=== PATIENT | female | born 1965 | race Caucasian/White ===

== ENCOUNTER → 2018-06-20 | Outpatient (CLI) | payer BC ==
--- NOTE | 2018-06-20 17:08 | Diagnostic Imaging Report ---
INDICATION: Cough with shortness of breath and fatigue. TIME OF EXAM: 1:40 PM No prior studies are available for comparison. The heart size is normal. The pulmonary vascularity is unremarkable. The lungs are clear. No infiltrate, effusion or pneumothorax is detected. Impression: No acute cardiopulmonary process is detected. Dictated by: Dictated on workstation # [id number]
== END ==
LOC: RAD 13:08
PROVIDERS: ATTEND Nurse Practitioner Primary Care
DX: J20.9 Acute bronchitis, unspecified (principal); R06.02 Shortness of breath
CPT/HCPCS: 71046

== ENCOUNTER 2021-02-21 11:26 | Outpatient (CLI) | payer BC ==
[~2021-02-21] VITALS: Ht 167.7 cm; Wt 88.6 kg
[2021-02-21 11:28] VITALS: BP 139/90
[2021-02-21] MEDS ORDERED: EPINEPHrine INJECTION 1 MG/ML AMP IM PRN (11:45)
[2021-02-21] MEDS ORDERED: diphenhydrAMINE 50 MG/ML INJ (BENADRYL) IV PRN (11:45)
[2021-02-21] MEDS ORDERED: CASIRIVIMAB/IMDEVIMAB 1,200 MG in NS (IVPB) 250 ML IV ONE (12:00)
[2021-02-21] MEDS ORDERED: ONDANSETRON 4 MG/2 ML (SDV) Z0FRAN IV PRN (12:00)
[2021-02-21] MEDS ORDERED: ACETAMINOPHEN 500 MG TAB (TYLENOL) PO PRN (12:00)
[2021-02-21 13:40] VITALS: BP 131/86
== END 2021-02-21 13:59 | disposition home or self-care (01) ==
LOC: INFUSION 11:26
PROVIDERS: ATTEND Nurse Practitioner
DX: Z23 Encounter for immunization (principal); U07.1 COVID-19

== ENCOUNTER → 2021-06-01 | Outpatient (REF) ==
--- NOTE | 2021-06-01 09:25 | Diagnostic Imaging Report ---
INDICATION: Fall. Foot pain. COMPARISON: None. FINDINGS: 3 views of the right foot demonstrate no acute fracture or dislocation. There are no focal osseous lesions. There is no soft tissue swelling. Mild osteoarthritic changes are noted at the 1st metatarsal phalangeal joint space. Otherwise, joint spaces are appropriate. No radiopaque foreign bodies are seen. IMPRESSION: 1. No acute fractures or dislocations of the right foot. 2. Mild osteoarthritic changes of the 1st metatarsal phalangeal joint space. Dictated by: Dictated on workstation # [id number]
== END ==
LOC: OCC 09:07
PROVIDERS: ATTEND Nurse Practitioner Family
DX: M79.671 Pain in right foot (principal)
CPT/HCPCS: 73630